=== PATIENT | female | born 1940 | race Caucasian/White ===

== ENCOUNTER 2018-12-07 16:05 | Inpatient (IN) | payer MEDICAID, MEDICARE ==
[~2018-12-07] VITALS: Ht 157.5 cm; Wt 74.8 kg
[~2018-12-07 16:05] MED LIST: ATEN25TA PO; COLA100C5 PO; FENO145T13 PO; HYDR-3910 PO; KEFL500C17 PO; LORT5TAB PO; LOSA100T5 PO; MOM30SS PO; SIMV40TA2 PO; VITA50005 PO; omeprazole OR
[2018-12-07] MEDS ORDERED: NS 1,000 ML IV SCH (16:15)
[2018-12-07] MEDS ORDERED: LABE100T36 PO (16:36)
[2018-12-07] MEDS ORDERED: EZET10TA PO (16:36)
--- NOTE | 2018-12-07 16:48 | REP ---
Clinical: Preoperative assessment . Comparison: 06/21/2015 . Findings: The mediastinum and cardiac silhouette are stable and within normal limits for portable technique. The lung rivera are clear without acute consolidation, effusion, or pneumothorax. Skeletal structures are intact. Impression: No acute cardiopulmonary process appreciated. Electronically Signed by Trip Mata MD 12/07/2018 04:39 P
[2018-12-07 17:15] LABS: BASO % 0.5 % (0.0-1.0); EOS # 0.3 10^3/uL (0.0-0.50); EOS % 3.3 % (0.0-3.0); HEMATOCRIT 36.8 % (36.0-47.0); LYMPH # 1.1 10^3/uL (1.5-4.5); LYMPH % 14.1 % (24.0-44.0); MEAN CORPUSCULAR HEMOGLOBIN 29.9 pg (27.0-33.0); MEAN CORPUSCULAR HGB CONC 32.6 g/dl (32.0-36.5); MEAN CORPUSCULAR VOLUME 91.5 fl (80.0-96.0); MONO # 0.4 10^3/uL (0.0-0.8); MONO % 5.3 % (0.0-5.0); NEUTROPHILS # 6.1 10^3/uL (1.8-7.7); NEUTROPHILS % 76.4 % (36.0-66.0); PLATELET COUNT, AUTOMATED 300 10^3/uL (150-450); RED BLOOD COUNT 4.02 10^6/uL (4.00-5.40)
[2018-12-07] MEDS ORDERED: MORPHINE 4 MG/ML 1ML VIAL/SYRINGE (J2270) IV ONE (17:15)
--- NOTE | 2018-12-07 17:16 | REP ---
Clinical: Prior trauma with splint. Technique: Portable AP and lateral views of the right ankle. Findings: Comminuted fracture dislocation of the ankle is appreciated but poorly evaluated due to overlying cast material. No prior examination is available for comparison. Impression: Comminuted fracture dislocation involving the right ankle. Electronically Signed by Trip Mata MD 12/07/2018 05:08 P
[2018-12-07 17:25] LABS: INR 0.92; PROTHROMBIN TIME 12.4 SECONDS (12.1-14.4)
[2018-12-07 17:37] LABS: CALCIUM LEVEL 8.5 MG/DL (8.8-10.2); CREATININE FOR GFR 1.47 MG/DL (0.55-1.30); GLOMERULAR FILTRATION RATE 36.7 (>39)
[2018-12-07] MEDS ORDERED: OMEP20CA3 PO (18:02)
[2018-12-07] MEDS ORDERED: MORPHINE 4 MG/ML 1ML VIAL/SYRINGE (J2270) IV PRN ×2 (18:15→21:15)
--- NOTE | 2018-12-07 18:20 | HPE ---
DATE OF ADMISSION: 12/07/2018 This is a 78-year-old female with a past medical history of chronic kidney disease (CKD), Stage IIIB, hypertension, hyperlipidemia who presents to the emergency room after having a fall while going to her doctor's office today. She was brought into our emergency room (ER) where we had an x-ray done of her ankle and her right ankle showed a comminuted fracture with dislocation. Orthopedics has seen the patient and could not reduce it and the patient will be sent emergently to the operating room (OR) for an open reduction internal fixation (ORIF). The patient denies any chest pain, shortness of breath, abdominal pain, nausea, vomiting, vertigo, or headache. PAST MEDICAL HISTORY: 1. Hypertension. 2. Hyperlipidemia. 3. History of gastroesophageal reflux disease (GERD). 4. History of breast carcinoma (CA) with bilateral mastectomy. 5. History of cholecystectomy. 6. Hysterectomy. ALLERGIES: She has drug allergies to CONTRAST MEDIA. FAMILY HISTORY: Noncontributory. SOCIAL HISTORY: The patient denies alcohol, tobacco, or illicit drug use. MEDICATIONS: She takes at home are as follows: - ezetimibe 10 mg orally daily - labetalol 100 mg orally twice a day - losartan/hydrochlorothiazide 100/25 mg one tablet orally daily - omeprazole 20 mg orally daily REVIEW OF SYSTEMS: Negative for all 10 major systems except for what is mentioned in the history of present illness (HPI). VITAL SIGNS: Blood pressure is 165/72, heart rate 66 and regular, respiratory rate is 20, temperature 99.5, oxygen saturation is 98% on room air. Head is normocephalic, atraumatic. Neck is supple with no jugular venous distention (JVD). Lungs are clear to auscultation. S1, S2 audible. No murmurs appreciated. Abdomen is soft, positive bowel sounds. No pedal edema. Skin is intact. On neurologic examination, the patient is awake, alert, and oriented times three. LABORATORY DATA: Sodium 141, potassium 4.0, chloride 107, CO2 26, BUN 21, creatinine 1.47, glucose is 120. WBC 8, hemoglobin is 12, hematocrit 36.8, platelets are 300,000. INR is 0.92. A 12-lead EKG shows normal sinus rhythm. No acute ST or T wave abnormalities. IMPRESSION: Right ankle fracture. PLAN: The patient is to be admitted to the medical/surgical floor once her open reduction internal fixation (ORIF) has been completed. We will reconcile all of her preadmission medications and continue once the patient is out of the operating room (OR). We will obviously have orthopedics officially on consult and continue her care in the medical/surgical floor. The patient is medically optimized at a moderate risk for a moderate risk procedure.
[2018-12-07] MEDS ORDERED: BUPIVACAINE/EPIN 0.25% 30 ML VIAL As Ordered ONE (18:28)
[2018-12-07] MEDS ORDERED: ceFAZolin 2 GM/D5W 50 ML IV BAG (J0690 PER 500MG) As Ordered ONE (18:44)
[2018-12-07] MEDS ORDERED: ONDANSETRON 4MG/2ML VIAL (J2405) As Ordered ONE (19:00)
[2018-12-07] MEDS ORDERED: dexameTHASONE 4 MG/ML 1ML VIAL (J1100) As Ordered ONE (19:00)
[2018-12-07] MEDS ORDERED: PROPOFOL 200 MG/20 ML VIAL As Ordered ONE (19:00)
[2018-12-07] MEDS ORDERED: fentaNYL 250 MCG/5 ML INJECTION (J3010) As Ordered ONE (19:00)
[2018-12-07] MEDS ORDERED: MIDAZOLAM INJ 2 MG/2 ML VIAL (J2250) As Ordered ONE (19:00)
[2018-12-07] MEDS ORDERED: LIDOCAINE 2% INJ 100 MG/5 ML SDV (FOR ANES.) As Ordered ONE (19:00)
[2018-12-07] MEDS ORDERED: PHENYLephrine HCL 500 MCG/5 ML (100MCG/ML) SYRINGE (J2370) As Ordered ONE (19:59)
[2018-12-07] MEDS ORDERED: ePHEDrine SULFATE 25 MG/5 ML(5MG/ML) SYRINGE As Ordered ONE (19:59)
[2018-12-07] MEDS ORDERED: CALCIUM CHLORIDE 10% 1 GM/10 ML SYR As Ordered ONE (19:59)
[2018-12-07] MEDS: LABETALOL HCL 100 MG/20 ML VIAL IV SCH ×6 (20:15→20:44)
[2018-12-07] MEDS ORDERED: LABETALOL HCL 100 MG/20 ML VIAL IV SCH (20:30)
[2018-12-07] MEDS ORDERED: ONDANSETRON 4MG/2ML VIAL (J2405) IV PRN ×2 (20:30→21:15)
[2018-12-07] MEDS ORDERED: NORCO, ANEXSIA 5/325MG TABLET (HYDROcodone/ACETAMINOPHEN) PO PRN (20:30)
[2018-12-07] MEDS ORDERED: LR 1,000 ML IV SCH (20:30)
[2018-12-07] MEDS ORDERED: fentaNYL 100 MCG/2 ML INJECTION (J3010) IV PRN (20:30)
[2018-12-07] MEDS: hydrALAZINE INJ 20 MG/ML VIAL IV SCH ×2 (20:38→20:44)
[2018-12-07] MEDS ORDERED: EZETIMIBE 10 MG TAB (ZETIA) PO SCH (21:00)
[2018-12-07] MEDS ORDERED: ACETAMINOPHEN TAB 650MG DOSE (2X325MG) PO PRN (21:15)
[2018-12-07] MEDS ORDERED: PERCOCET 5MG/325MG TAB PO PRN (21:15)
[2018-12-07 21:30] VITALS: BP 197/86
[2018-12-07 22:00] VITALS: BP 187/84
[2018-12-07 23:00] VITALS: BP 187/85
[2018-12-07] MEDS: LABETALOL 100 MG TAB PO SCH (23:13)
[2018-12-08] VITALS: BP 189/85
[2018-12-08 02:00] VITALS: BP 138/61
[2018-12-08 06:00] VITALS: BP 135/61
[2018-12-08 06:57] LABS: BASO % 0.2 % (0.0-1.0); HEMATOCRIT 32.2 % (36.0-47.0); HEMOGLOBIN 10.7 g/dl (12.0-15.5); LYMPH % 8.2 % (24.0-44.0); MEAN CORPUSCULAR HEMOGLOBIN 30.1 pg (27.0-33.0); MEAN CORPUSCULAR HGB CONC 33.2 g/dl (32.0-36.5); MEAN CORPUSCULAR VOLUME 90.4 fl (80.0-96.0); MONO # 0.3 10^3/uL (0.0-0.8); MONO % 2.7 % (0.0-5.0); NEUTROPHILS # 10.6 10^3/uL (1.8-7.7); NEUTROPHILS % 88.4 % (36.0-66.0); PLATELET COUNT, AUTOMATED 276 10^3/uL (150-450); RED BLOOD COUNT 3.56 10^6/uL (4.00-5.40)
[2018-12-08 07:35] LABS: CALCIUM LEVEL 8.9 MG/DL (8.8-10.2); CREATININE FOR GFR 1.48 MG/DL (0.55-1.30); GLOMERULAR FILTRATION RATE 36.4 (>39); POTASSIUM SERUM 4.3 MEQ/L (3.5-5.1)
--- NOTE | 2018-12-08 07:41 | REP ---
Clinical: Intraoperative fixation. Technique: Fluoroscopic imaging using portable C-arm technique. Findings: Three intraoperative images demonstrate the patient to be status post open reduction and fixation for bilateral malleolar fractures. Orthopedic hardware is in satisfactory position and satisfactory reduction at the fracture sites suggested. Total fluoroscopic time 25 seconds. Impression: As post open reduction and fixation for bilateral malleolar fractures. Electronically Signed by Trip Mata MD 12/08/2018 07:33 A
[2018-12-08] MEDS ORDERED: PERCOCET 5MG/325MG TAB PO PRN (07:45)
[2018-12-08] MEDS ORDERED: ASPI325T PO (08:15)
[2018-12-08] MEDS ORDERED: PERC5TAB12 PO (08:15)
[2018-12-08] MEDS ORDERED: LOSARTAN 50 MG TAB PO SCH (09:00)
[2018-12-08] MEDS ORDERED: METAMUCIL (PSYLLIUM) PACKET PO SCH (09:00)
[2018-12-08] MEDS ORDERED: OMEPRAZOLE 20 MG CAP PO SCH (09:00)
[2018-12-08] MEDS ORDERED: ASPIRIN 325 MG TAB PO SCH (09:00)
--- NOTE | 2018-12-08 09:17 | CR ---
DATE OF CONSULTATION: 12/07/2018 CHIEF COMPLAINT: Right ankle discomfort. HISTORY OF PRESENT ILLNESS: Slipped on the ice at [facility] on her way to apparently, a routine doctor visit and injured the right ankle. She was seen there in the emergency room where imaging studies reflected an ankle fracture-dislocation. Emergency room personnel apparently tried two times to relocate the ankle without success. The patient was splinted. Orthopedics was consulted by doctor of orthopedics at [facility], consulted by Dr. Rosales and we accepted transfer to [facility]. The patient was transferred to [facility] complaining of right ankle pain and deformity and inability to ambulate. The last meal was 11:30 a.m., grilled cheese. Injury happened approximately 02:00 p.m. the afternoon ALLERGIES: CONTRAST DYE. MEDICAL HISTORY INCLUDES: Hypertension. Renal insufficiency. Anemia. Gastroesophageal reflux disease. Right breast cancer. PAST SURGICAL HISTORY INCLUDES: Bilateral mastectomy as well as Vnwnid-H-Qygn CURRENT MEDICATIONS INCLUDE: Omeprazole and losartan. FAMILY HISTORY: Not contributory. Father due to lung cancer. Mother due to anaphylactic reaction to bee sting. SOCIAL HISTORY: Does not smoke and does not drink. Is , is accompanied by her who is quite attentive. CLINICAL EXAMINATION Alert, oriented, cooperative. Mood and affect seem to be appropriate. She is a pleasant patient. She appears to be comfortable as long as she is not moving the right lower extremity. Left lower extremity seems to be uninvolved. Both calves are soft, nontender. No effusion present at either knee. Hips: No tenderness with roll, warm, well-perfused. Dorsalis pedis pulse palpable. Obvious deformity right lower extremity. Imaging studies reviewed. Multiple imaging studies reflect a technically trimalleolar fracture-dislocation, which is misaligned. IMPRESSION: Misaligned ankle stress fracture dislocation. RECOMMENDATION: I talked to the patient about emergently treating this surgically. Options at this stage could be sedation in the emergency room and closed reduction with a later fixation. However, there is a risk of skin compromise and also there is probably increased risk of aspiration with that procedure in the emergency room which would only be a temporary procedure in any event. So we also talked about operative intervention and putting her on the operating room schedule emergently, and she did agree to proceed. We completed a preoperative packet including the short-form history and physical, as well as the consent document which involved the discussion of the procedure proposed, alternatives like doing nothing, risks including but not limited to pain, failure, bleeding blood loss, blood clots, need for more surgery, infection, limp and other issues. She understood and agreed to proceed. Next, I coordinated care with Dr. Gooden, Mr. Gipson, as well Dr. Newman, the hospitalist for medical optimization. I coordinated with the operating room and anesthesia personnel as well. We were able to arrange for operative intervention promptly. For further details please refer to medical record.
--- NOTE | 2018-12-08 09:37 | RO ---
DATE OF PROCEDURE: 12/07/2018 PREOPERATIVE DIAGNOSIS: Right ankle fracture dislocation trimalleolar type. POSTOPERATIVE DIAGNOSIS: Right ankle fracture dislocation trimalleolar type. PROCEDURE PERFORMED: Open reduction internal fixation of right ankle trimalleolar fracture dislocation with fixation of the medial malleolus and lateral malleolus required. SURGEON: Dr. Aly Aragon. TELEGRAPH INSPECTOR: None. ANESTHESIA: Spinal, Dr. Adamson. ESTIMATED BLOOD LOSS: Less than 30 mL, replaced with Crystalloid. No tourniquet was inflated or required for this case. COMPLICATIONS: COMPONENTS USED: Include a Synthes one-third tubular plate and the appropriate cortical and cancellous screws, a 18 mm lag screw and a pair of 4.0 cannulated malleolar screws at the medial malleolus. INDICATIONS: Fall earlier today. Fracture dislocation and difficult to alignment despite multiple attempts at reduction. Consent reviewed in detail including a piper discussion of the pathology involved, procedure proposed, risks including but not limited to pain, failure, limp, infection, need for more surgery and other issues. OPERATIVE COURSE: Identified in the holding area, site side verified, brought to the operating room. Once spinal administered, she was positioned in the usual fashion for exposure of the right lower extremity. Next, I marked the incision using a sterile marking pen infiltrated with 0.25% Marcaine with epinephrine. I made the lateral incision first over the fibula. Fluoroscopy was utilized. We did provisionally reduced the ankle at this stage as well. The fibula was exposed. The fracture was exposed. Soft tissue was protected. The fracture was reduced and I placed a fracture reduction clamp followed by an anterior to posterior lag screw followed by placement of one-third tubular seven hole plate with the appropriate cancellous and cortical screws. This reflected anatomic reduction of the fracture. Next the medial incision was made just anterior to the medial malleolus. The saphenous vein was protected. The fracture was identified, reduced. I placed the guidewire times two across the fracture and verified position fluoroscopically and then drilled and placed a pair of 4.0 cannulated screws of the appropriate length, fixing the medial malleolar fragment. We obtained imaging studies that reflected anatomic reduction of the patient's fracture in AP, mortise and lateral planes. Next, wounds were irrigated, closed with nylon stitch. Dressings were applied. The patient was placed in a short-leg fiberglass cast and moved to the recovery room in good condition. Her end of care was accomplished by 8:[address] Tam Rosales, [facility] emergency room.
--- NOTE | 2018-12-08 10:20 | ECGEPIP ---
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
[2018-12-08 10:39] VITALS: BP 152/63
[2018-12-08] MEDS: LABETALOL 100 MG TAB PO SCH (10:39)
--- NOTE | 2018-12-08 11:43 | DS.PDOC ---
Discharge Summary General Date of Admission Dec 07, 2018 at 21:23 Date of Discharge 12/08/2018 Discharge Summary PROCEDURES: 12/07/2108: ORIF of R ankle trimalleolar fracture dislocation with fixation of the medial malleolus and lateral malleolus with Dr. Zachery Aragon ADMITTING DIAGNOSES / DISCHARGE DIAGNOSES: Mechanical fall with comminuted fracture dislocation of right ankle - s/p ORIF (POD#1) Leukocytosis - likely 2/2 reactive etiology Normocytic anemia HTN DLP Breast CA s/p b/l mastectomy GERD DVT prophylaxis COMPLICATIONS/CHIEF COMPLAINT: Right ankle pain HISTORY OF PRESENT ILLNESS: Patient is a 78-year-old female with a PMHx of HTN, DLP, Breast CA s/p b/l mastectomy, GERD, who presented to the ER after she had fallen going to the doctor's office. In the emergency room, patient was found to have a fracture of the right ankle and was admitted to the hospitalist service with orthopedic surgery on consultation. HOSPITAL COURSE: Mechanical fall with right ankle fracture/dislocation - s/p ORIF (POD#1) - Patient noted that she had fallen while going to the doctor's office - Clinically patient notes improvement in her pain - Cast remains in place - Pain control and physical therapy at the direction of her orthopedic surgery Leukocytosis - likely 2/2 reactive etiology - ROS negative for any other infection - Hold off antibiotics Normocytic anemia - Likely 2/2 dilutional etiology - No blood loss reported HTN - BP well controlled - c/w Losartan and Labetalol DLP - c/w ASA and Ezetimibe Breast CA s/p b/l mastectomy GERD - c/w Omeprazole DVT prophylaxis - c/w SCDs/TEDs DISCHARGE MEDICATIONS: Please see below. ALLERGIES: Please see below. PHYSICAL EXAMINATION ON DISCHARGE: Vitals (See below) General: Lying in bed, no acute distress, comfortable, AAOx3 HEENT: NC, AT CVS: RRR, +S1S2 Lungs: Fair air entry b/l, -w/r/r Abdomen: Soft, ND, NT Extremities: - Edema, - Calf tenderness, right ankle in cast LABORATORY DATA: Please see below. ACTIVITY: [As tolerated]. DISCHARGE PLAN: Follow up with Dr. Becky Hunter and Dr. Zachery Aragon within 7 days Remain compliant with treatment plan and medications Return to the ER if you experience any problems DISPOSITION: Home DISCHARGE CONDITION: [Stable]. TIME SPENT ON DISCHARGE: Greater than [35] minutes. Vital Signs/I&Os Vital Signs Date Time Temp Pulse Resp B/P (MAP) Pulse Ox O2 Delivery O2 Flow Rate FiO2 12/08/18 10:39 80 152/63 12/08/18 06:00 97.7 20 97 12/07/18 21:05 Room Air 12/07/18 20:20 2 I&O- Last 24 Hours up to 6 AM 12/08/18 06:00 Intake Total 1580 ml Output Total 525 ml Balance 1055 ml Laboratory Data Labs 24H Laboratory Tests 2 12/07/18 17:00: Immature Granulocyte % (Auto) 0.4, White Blood Count 8.0, Red Blood Count 4.02, Hemoglobin 12.0, Hematocrit 36.8, Mean Corpuscular Volume 91.5, Mean Corpuscular Hemoglobin 29.9, Mean Corpuscular Hemoglobin Concent 32.6, Red Cell Distribution Width 12.0, Platelet Count 300, Neutrophils (%) (Auto) 76.4H, Lymphocytes (%) (Auto) 14.1L, Monocytes (%) (Auto) 5.3H, Eosinophils (%) (Auto) 3.3H, Basophils (%) (Auto) 0.5, Neutrophils # (Auto) 6.1, Lymphocytes # (Auto) 1.1L, Monocytes # (Auto) 0.4, Eosinophils # (Auto) 0.3, Basophils # (Auto) 0.0, Nucleated Red Blood Cells % (auto) 0.0, Prothrombin Time 12.4, Prothromb Time International Ratio 0.92, Anion Gap 8, Glomerular Filtration Rate 36.7L, Blood Urea Nitrogen 21H, Creatinine 1.47H, Sodium Level 141, Potassium Level 4.0, Chloride Level 107, Carbon Dioxide Level 26, Calcium Level 8.5L 12/08/18 06:38: Immature Granulocyte % (Auto) 0.5, White Blood Count 12.0H, Red Blood Count 3.56L, Hemoglobin 10.7L, Hematocrit 32.2L, Mean Corpuscular Volume 90.4, Mean Corpuscular Hemoglobin 30.1, Mean Corpuscular Hemoglobin Concent 33.2, Red Cell Distribution Width 12.0, Platelet Count 276, Neutrophils (%) (Auto) 88.4H, Lymphocytes (%) (Auto) 8.2L, Monocytes (%) (Auto) 2.7, Eosinophils (%) (Auto) 0.0, Basophils (%) (Auto) 0.2, Neutrophils # (Auto) 10.6H, Lymphocytes # (Auto) 1.0L, Monocytes # (Auto) 0.3, Eosinophils # (Auto) 0.0, Basophils # (Auto) 0.0, Nucleated Red Blood Cells % (auto) 0.0, Anion Gap 10, Glomerular Filtration Rate 36.4L, Blood Urea Nitrogen 20H, Creatinine 1.48H, Sodium Level 140, Potassium Level 4.3, Chloride Level 108H, Carbon Dioxide Level 22, Calcium Level 8.9 CBC/BMP Laboratory Tests 12/07/18 17:00 Red Blood Count 4.02, Mean Corpuscular Volume 91.5, Mean Corpuscular Hemoglobin 29.9, Mean Corpuscular Hemoglobin Concent 32.6, Red Cell Distribution Width 12.0, Neutrophils (%) (Auto) 76.4 H, Lymphocytes (%) (Auto) 14.1 L, Monocytes (%) (Auto) 5.3 H, Eosinophils (%) (Auto) 3.3 H, Basophils (%) (Auto) 0.5, Neutrophils # (Auto) 6.1, Lymphocytes # (Auto) 1.1 L, Monocytes # (Auto) 0.4, Eosinophils # (Auto) 0.3, Basophils # (Auto) 0.0, Calcium Level 8.5 L 12/08/18 06:38 Red Blood Count 3.56 L, Mean Corpuscular Volume 90.4, Mean Corpuscular Hemoglobin 30.1, Mean Corpuscular Hemoglobin Concent 33.2, Red Cell Distribution Width 12.0, Neutrophils (%) (Auto) 88.4 H, Lymphocytes (%) (Auto) 8.2 L, Monocytes (%) (Auto) 2.7, Eosinophils (%) (Auto) 0.0, Basophils (%) (Auto) 0.2, Neutrophils # (Auto) 10.6 H, Lymphocytes # (Auto) 1.0 L, Monocytes # (Auto) 0.3, Eosinophils # (Auto) 0.0, Basophils # (Auto) 0.0, Calcium Level 8.9 Discharge Medications Scheduled (Losartan Potassium/Hydroc 100-25 mg) 1 Tab Tab, 1 TAB PO DAILY, (Reported) (Labetalol Hydrochloride) 100 Mg Tab, 100 MG PO BID, (Reported) Aspirin (Aspirin) 325 Mg Tab, 1 TAB PO DAILY for fever Ezetimibe (Ezetimibe) 10 Mg Tab, 10 MG PO QHS, (Reported) Omeprazole (Omeprazole) 20 Mg Cap, 20 MG PO DAILY, (Reported) Scheduled PRN Oxycodone/Acetaminophen (Percocet 5-325 mg) 1 Tab Tab, 1 TAB PO Q4H PRN for PAIN Allergies Coded Allergies: Contrast Media (Verified Allergy, Unknown, 06/17/15) TAPE (Unverified Allergy, Unknown, 12/07/18) OLINDA AMBROCIO MD Dec 08, 2018 11:43
== END 2018-12-08 13:15 | disposition home or self-care (01) | DRG 494 ==
LOC: M ED 16:05 → EDBD 16:05 → M SDC 17:55 → M MS5PR 21:23
PROVIDERS: ADMIT Internal Medicine; ATTEND Internal Medicine
PROC: 0QSJ04Z Reposition Right Fibula with Internal Fixation Device, Open Approach (ICD-10-PCS; principal; 2018-12-07 18:44)
DX: S82.851A Displaced trimalleolar fracture of right lower leg, initial encounter for closed fracture (principal); I12.9 Hypertensive chronic kidney disease with stage 1 through stage 4 chronic kidney disease, or unspecified chronic kidney disease; N18.3 Chronic kidney disease, stage 3 (moderate); K21.9 Gastro-esophageal reflux disease without esophagitis; D64.9 Anemia, unspecified; D72.829 Elevated white blood cell count, unspecified; Z85.3 Personal history of malignant neoplasm of breast; Z79.82 Long term (current) use of aspirin; Z79.899 Other long term (current) drug therapy; Z91.041 Radiographic dye allergy status; E78.5 Hyperlipidemia, unspecified; Z90.11 Acquired absence of right breast and nipple; Z90.12 Acquired absence of left breast and nipple; W18.30XA Fall on same level, unspecified, initial encounter; Y92.009 Unspecified place in unspecified non-institutional (private) residence as the place of occurrence of the external cause

== ENCOUNTER → 2019-06-19 | Outpatient (CLI) | payer MEDICARE ==
[~2019-06-19] MED LIST changes: +ASPI-1 PO; +CALC500T25 PO; +EZET10TA21 PO; +FISH1000 PO; +HYDR-3363 PO; +LABE100T36 PO; +MAGN64TASA PO; +OMEP20CA4 PO; +PERC5TAB12 PO
[2019-06-19 13:26] LABS: CALCIUM LEVEL 9.1 MG/DL (8.8-10.2); CREATININE FOR GFR 1.76 MG/DL (0.55-1.30); GLOMERULAR FILTRATION RATE 29.7 (>39); POTASSIUM SERUM 4.6 MEQ/L (3.5-5.1)
--- NOTE | 2019-06-20 20:32 | ECGEPIP ---
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
== END ==
LOC: M LAB 11:31
PROVIDERS: ATTEND Orthopaedic Surgery
DX: Z01.812 Encounter for preprocedural laboratory examination (principal); Z01.810 Encounter for preprocedural cardiovascular examination; T84.84XA Pain due to internal orthopedic prosthetic devices, implants and grafts, initial encounter

== ENCOUNTER → 2021-07-22 | Outpatient (REF) | payer MEDICARE ==
[~2021-07-22] MED LIST changes: +ERGO500029; -FENO145T13 PO; +FENO145T7 PO; -LABE100T36 PO; +LABE100T5 PO; +OMEP1CAP73 PO; -OMEP20CA4 PO; -SIMV40TA2 PO; +SIMV40TA20 PO
== END ==
LOC: M LAB REF 17:00
PROVIDERS: ATTEND Nurse Practitioner Family
DX: E83.42 Hypomagnesemia (principal)

== ENCOUNTER → 2021-12-09 | Outpatient (REF) | payer MEDICARE | LOC: M LAB REF 17:06 | PROVIDERS: ATTEND Nurse Practitioner Family | DX: E83.42 Hypomagnesemia (principal) ==